=== PATIENT | female | born 1995 | race Two or more races ===

== ENCOUNTER 2017-03-18 08:18 | Inpatient (IN) | payer MEDICAID ==
[~2017-03-18] VITALS: Ht 170.2 cm; Wt 68.0 kg
[~2017-03-18 08:18] MED LIST: ASPI325T17 PO; OXYC-306 PO
[2017-03-18] MEDS ORDERED: ANTIBIOTICS PO (08:52)
[2017-03-18] MEDS ORDERED: ONDANSETRON ODT 4 MG ONE (09:05)
[2017-03-18 09:15] LABS: HEMATOCRIT 41.9 % (34.6-47.8); HEMOGLOBIN 13.5 g/dL (11.7-16.4); WHITE BLOOD COUNT 14.3 x10^3/uL (4.5-13.2)
[2017-03-18 09:28] LABS: ASPARTATE AMINO TRANSFERASE 16 U/L (15-37); BLOOD UREA NITROGEN 15 mg/dL (7-18)
[2017-03-18] MEDS ORDERED: ONDANSETRON ODT 4 MG PO ONE (10:00)
[2017-03-18] MEDS ORDERED: OMNIPAQUE 350 MG/ML, 100ML BOTTLE ONE (11:32)
[2017-03-18] MEDS ORDERED: MORPHINE SULFATE 4 MG/ML, 1ML IVPush PRN (12:00)
[2017-03-18] MEDS ORDERED: KETOROLAC 30 MG/1 ML IVPush ONE (12:00)
[2017-03-18] MEDS ORDERED: ONDANSETRON 2MG/ML, 2ML IVPush ONE (12:00)
[2017-03-18] MEDS ORDERED: morphine SULFATE 10 MG/ML, 1ML ONE (12:05)
[2017-03-18] MEDS ORDERED: ONDANSETRON 2MG/ML, 2ML ONE (12:05)
[2017-03-18] MEDS ORDERED: SODIUM CHLORIDE 0.9% 1,000 ML IV ONE (12:35)
[2017-03-18] MEDS ORDERED: SODIUM CHLORIDE FLUSH 10ML SYR IVF PRN (13:00)
[2017-03-18] MEDS ORDERED: BENZOCAINE 20% SPRAY 0.5ML ONE ×2 (13:12→13:13)
[2017-03-18] MEDS ORDERED: OXYcodone IR 5MG TABLET PO PRN (13:30)
[2017-03-18] MEDS ORDERED: ACETAMINOPHEN 325 MG TABLET PO PRN (13:30)
[2017-03-18] MEDS ORDERED: morphine SULFATE 10 MG/ML, 1ML IVPush PRN (13:30)
[2017-03-18] MEDS: ENOXAPARIN 40 MG/0.4 ML SQ SCH (13:30)
[2017-03-18] MEDS ORDERED: PROMETHAZINE 25 MG/ML, 1ML IM PRN (13:30)
[2017-03-18] MEDS ORDERED: ALUMINUM/MAG/SIMETHICONE 30 ML UDC PO PRN (13:30)
[2017-03-18] MEDS ORDERED: DOCUSATE 100 MG CAPSULE PO PRN (13:30)
[2017-03-18 14:20] VITALS: BP 101/67
[2017-03-18] MEDS: CEFTRIAXONE PMX 1GM/50ML 50 ML IV SCH (16:24)
[2017-03-18] MEDS: SODIUM CHLORIDE 0.9% 1,000 ML IV SCH (16:24)
[2017-03-18] MEDS: ONDANSETRON 2MG/ML, 2ML IVPush PRN (16:24)
[2017-03-18 19:25] VITALS: BP 108/72
[2017-03-18] MEDS: FAMOTIDINE 20 MG TABLET PO SCH (21:34)
[2017-03-19 05:09] LABS: HEMATOCRIT 35.2 % (34.6-47.8); HEMOGLOBIN 11.3 g/dL (11.7-16.4); WHITE BLOOD COUNT 5.6 x10^3/uL (4.5-13.2)
[2017-03-19 05:12] LABS: BLOOD UREA NITROGEN 8 mg/dL (7-18)
[2017-03-19 05:14] VITALS: BP 112/78
[2017-03-19] MEDS: ONDANSETRON 2MG/ML, 2ML IVPush PRN ×3 (05:15→18:01)
[2017-03-19] MEDS: SODIUM CHLORIDE 0.9% 1,000 ML IV SCH (05:15)
[2017-03-19 07:45] VITALS: BP 97/55
[2017-03-19] MEDS: FAMOTIDINE 20 MG TABLET PO SCH (08:32)
[2017-03-19 13:05] VITALS: BP 100/80
[2017-03-19] MEDS: CEFTRIAXONE PMX 1GM/50ML 50 ML IV SCH (13:26)
[2017-03-19] MEDS: ENOXAPARIN 40 MG/0.4 ML SQ SCH (13:26)
[2017-03-19] MEDS ORDERED: ONDA4TAB10 PO (13:39)
[2017-03-19] MEDS ORDERED: FLU VACC QS2017-18 (36MOS+) UP/PF 0.5 ML IM-VACC ONE (15:00)
== END 2017-03-19 18:20 | disposition home or self-care (01) | DRG 392 ==
LOC: ED 09:57 → EDIP 12:35 → 3NW 14:23
PROVIDERS: ADMIT Family Medicine; ATTEND Family Medicine
DX: A08.4 Viral intestinal infection, unspecified (principal); D72.828 Other elevated white blood cell count; N39.0 Urinary tract infection, site not specified; K29.00 Acute gastritis without bleeding; E86.0 Dehydration; F17.200 Nicotine dependence, unspecified, uncomplicated; N83.209 Unspecified ovarian cyst, unspecified side
CPT/HCPCS: 36415; 74177; 80048; 80053; 81001; 83690; 83735; 84703; 85025; 87086; 90686; 96374; 96375; J0696; J2405; Q0162; Q9967; J7030

== ENCOUNTER 2017-12-01 18:21 | Emergency (ER) | payer MEDICAID ==
[~2017-12-01] VITALS: Ht 167.6 cm; Wt 73.0 kg
[~2017-12-01 18:21] MED LIST changes: +ANTIBIOTICS PO; +ONDA4TAB10 PO
[2017-12-01 18:56] LABS: CULTURE INDICATED? YES; MICROSCOPIC INDICATED
[2017-12-01 19:10] VITALS: BP 105/64
== END 2017-12-01 19:17 | disposition home or self-care (01) ==
LOC: ED 19:14
DX: N30.90 Cystitis, unspecified without hematuria (principal); F17.200 Nicotine dependence, unspecified, uncomplicated
CPT/HCPCS: 81001; 87086; 87147; 99284

== ENCOUNTER 2018-01-09 18:05 | Emergency (ER) | payer MEDICAID ==
[~2018-01-09] VITALS: Ht 170.2 cm; Wt 74.0 kg
[2018-01-09 18:11] VITALS: BP 114/68
[2018-01-09] MEDS ORDERED: DEXAMETHASONE 4 MG TABLET PO ONE (18:30)
[2018-01-09] MEDS ORDERED: DEXAMETHASONE 4 MG TABLET ONE (18:31)
== END 2018-01-09 19:22 | disposition home or self-care (01) ==
LOC: ED 18:30
DX: J02.8 Acute pharyngitis due to other specified organisms (principal); B97.89 Other viral agents as the cause of diseases classified elsewhere
CPT/HCPCS: 87081; 87880; 99284

== ENCOUNTER 2018-07-01 23:49 | Emergency (ER) | payer SELFPAY ==
[~2018-07-01] VITALS: Ht 170.2 cm; Wt 77.8 kg
[2018-07-01 23:51] VITALS: BP 111/79
[2018-07-02] MEDS ORDERED: IBUPROFEN 200 MG TABLET PO ONE (00:30)
[2018-07-02] MEDS ORDERED: IBUPROFEN 200 MG TABLET ONE (00:41)
--- NOTE | 2018-07-02 01:14 | NUR ---
Patient/Caregiver given discharge instructions and they have confirmed that they understand the instructions. Patient ambulatory with steady gait using crutches.
== END 2018-07-02 01:15 | disposition home or self-care (01) ==
LOC: ED 07-02 01:03
DX: G89.11 Acute pain due to trauma (principal); M25.561 Pain in right knee; X50.1XXA Overexertion from prolonged static or awkward postures, initial encounter; Y93.89 Activity, other specified; Y92.328 Other athletic field as the place of occurrence of the external cause; Y99.8 Other external cause status
CPT/HCPCS: 29505; 99283